=== PATIENT | female | born 1940 | race Asian ===

== ENCOUNTER → 2021-11-07 | Outpatient (CLI) | payer MEDICARE, OTHER ==
[~2021-11-07] MED LIST: AMLO1TAB12 PO; ASCO500 PO; ASPI-482 PO; CALC-590 PO; FISH1CAP20 PO
== END | disposition home or self-care (01) ==
LOC: RADPV 10:35
PROVIDERS: ATTEND Internal Medicine Cardiovascular Disease
DX: I08.8 Other rheumatic multiple valve diseases (principal); I50.22 Chronic systolic (congestive) heart failure
CPT/HCPCS: 93306